=== PATIENT | female | born 1970 ===

== ENCOUNTER 2016-08-14 20:12 | Emergency (ER) | payer BC ==
[2016-08-14 21:31] VITALS: BP 104/64
--- NOTE | 2016-08-14 21:46 | UC ---
Upper Extremity HPI - HPI Summary HPI Summary: pt reports that she tripped on 08/11/16 and fell with her left hand out stretched in formnt of her and fell into a counter that was at waist level. mior pain at time of fall and woke today with left wrist weakness and pain with movement. - History of Current Complaint Chief Complaint: UCUpperExtremity Stated Complaint: FELL ARM INJURY Time Seen by Provider: 08/14/16 21:29 Hx Obtained From: Patient Hx Last Menstrual Period: IUD ?: No Onset/Duration: Gradual Onset, Lasting Days Severity Initially: Mild Severity Currently: Moderate Location Of Pain: Is Discrete @ - left medial wrist Character: Dull, Aching Aggravating Factor(s): Movement, Lifting Alleviating Factor(s): Rest Associated Signs And Symptoms: Positive: Swelling, Weakness - Allergies/Home Medications Allergies/Adverse Reactions: Allergies Allergy/AdvReac Type Severity Reaction Status Date / Time Sulfamethoxazole Allergy Hives Verified 08/14/16 21:31 w/Trimethoprim [From Bactrim] Home Medications: Home Medications Ibuprofen TAB* [Advil TAB*] 600 mg PO PRN 08/14/16 [History] Omeprazole CAP* [Prilosec CAP* 20 MG] 08/14/16 [History] metFORMIN* [Glucophage*] 1,000 mg PO BID 08/14/16 [History Confirmed 08/14/16] PMH/Surg Hx/FS Hx/Imm Hx Previously Healthy: Yes - see pmh Endocrine History Of: Reports: Diabetes Cardiovascular History Of: Denies: Hypertension, Pacemaker/ICD GI/ History Of: Denies: Renal Disease - Surgical History Surgical History: Yes Surgery Procedure, Year, and Place: 2 - Family History Known Family History: Positive: Cardiac Disease - Social History Lives: With Family Alcohol Use: Occasionally Substance Use Type: None Smoking Status (MU): Never Smoked Tobacco Review of Systems Constitutional: Negative Skin: Negative Eyes: Negative ENT: Negative Respiratory: Negative Cardiovascular: Negative Gastrointestinal: Negative Genitourinary: Negative Motor: Decreased ROM - left wrist, Weakness - left wrist Neurovascular: Negative Musculoskeletal: Decreased ROM - left wrist, Myalgia Neurological: Negative Psychological: Negative All Other Systems Reviewed And Are Negative: Yes Physical Exam Triage Information Reviewed: Yes Appearance: Well-Appearing Vital Signs: Initial Vital Signs Temp 98.7 F 08/14/16 21:26 Pulse 83 08/14/16 21:26 Resp 16 08/14/16 21:26 BP 104/64 08/14/16 21:26 Pulse Ox 99 08/14/16 21:26 Respiratory Exam: Other Respiratory: Positive: No respiratory distress Musculoskeletal Exam: Other Musculoskeletal: Positive: Strength Limited @ - left wrist, ROM Limited @ - left wrist, medial Neurological Exam: Normal Psychological Exam: Normal Skin Exam: Normal Upper Extremity Course/Dx - Differential Dx/Diagnosis Differential Diagnosis/HQI/PQRI: Fracture (Closed), Strain, Sprain Provider Diagnoses: left wrist sprain Discharge - Discharge Plan Condition: Stable Disposition: HOME Patient Education Materials: Wrist Sprain (ED)
--- NOTE | 2016-08-14 22:05 | RAD ---
INDICATION: Left wrist injury. TECHNIQUE: 3 views of the left wrist were obtained. FINDINGS: The bones are in normal alignment. No fracture is seen. Joint spaces appear maintained. IMPRESSION: NO EVIDENCE FOR FRACTURE. IF THE PATIENT'S SYMPTOMS PERSIST RECOMMEND FOLLOW-UP IMAGING.
== END 2016-08-14 22:25 | disposition home or self-care (01) ==
LOC: UCEAST 20:12
DX: S63.502A Unspecified sprain of left wrist, initial encounter (principal); W01.198A Fall on same level from slipping, tripping and stumbling with subsequent striking against other object, initial encounter; Y93.9 Activity, unspecified; Y92.9 Unspecified place or not applicable; E11.9 Type 2 diabetes mellitus without complications; Z79.84 Long term (current) use of oral hypoglycemic drugs; Z88.2 Allergy status to sulfonamides
CPT/HCPCS: 99211; G0463